=== PATIENT | female | born 1960 | race Caucasian/White ===

== ENCOUNTER 2017-06-12 18:20 | Emergency (ER) | payer OTHER ==
[~2017-06-12] VITALS: Ht 165.1 cm; Wt 99.3 kg
[2017-06-12 18:25] VITALS: BP_SYST 134
[2017-06-12] MEDS ORDERED: NITROGLYCERIN 1 INCH (GM) OINT. TP ONE (18:45)
[2017-06-12] MEDS ORDERED: ASPIRIN 81 MG TAB.CHEW PO ONE (18:45)
[2017-06-12 19:33] LABS: CALCIUM 9.6 mg/dL (8.4-11.0); CREATININE 0.89 mg/dL (0.55-1.30); POTASSIUM 4.4 mmol/L (3.5-5.1)
[2017-06-12 19:37] LABS: ALBUMIN 3.6 g/dL (3.4-4.8); TOTAL BILIRUBIN 0.2 mg/dL (0.0-1.0)
[2017-06-12 19:40] LABS: BASOPHILS # (AUTO) 0.1 K/uL (0.0-0.2); BASOPHILS % (AUTO) 0.6 % (0.0-2.0); EOSINOPHILS # (AUTO) 0.4 K/uL (0.0-0.4); EOSINOPHILS % (AUTO) 4.6 % (0.0-4.0); HEMATOCRIT 37.3 % (36-48); HEMOGLOBIN 12.5 g/dL (12.0-16.0); LYMPHOCYTES # (AUTO) 3.1 K/uL (1.0-5.5); LYMPHOCYTES % (AUTO) 36.3 % (20.5-51.5); MEAN CORPUSCULAR HEMOGLOBIN 28 pg (27-31); MEAN CORPUSCULAR HGB CONC 34 % (32-36); MEAN CORPUSCULAR VOLUME 84 fL (79.0-98.0); MONOCYTES # (AUTO) 0.5 K/uL (0.0-1.0); MONOCYTES % (AUTO) 5.6 % (1.7-9.3); NEUTROPHILS # (AUTO) 4.4 K/uL (1.8-7.7); NEUTROPHILS % (AUTO) 52.9 % (40.0-70.0); PLATELET COUNT (AUTO) 294 K/uL (130-430); RED BLOOD CELL COUNT(AUTO) 4.47 MIL/uL (4.2-6.2); WHITE BLOOD COUNT (AUTO) 8.5 K/uL (4.8-10.8)
[2017-06-12 19:41] LABS: PROTHROMBIN TIME 9.9 SECS (9.5-12.5)
[2017-06-12] MEDS ORDERED: DIPHENHYDRAMINE INJ 50 MG/ML VIAL IVP ONE (19:45)
[2017-06-12] MEDS ORDERED: MORPHINE 4 MG/ML INJ. SYRINGE IVP ONE (19:45)
[2017-06-12] MEDS ORDERED: MORPHINE SULFATE 10 MG/ML VIAL ONE (20:00)
[2017-06-12] MEDS ORDERED: KETOROLAC TROMETHAMINE 60 MG/2 ML VIAL IM ONE (22:00)
[2017-06-12 22:53] VITALS: BP_SYST 125
== END 2017-06-12 22:58 | disposition home or self-care (01) ==
LOC: SED 18:20
DX: R07.89 Other chest pain (principal); I10 Essential (primary) hypertension; E78.5 Hyperlipidemia, unspecified; Z88.2 Allergy status to sulfonamides; Z88.0 Allergy status to penicillin; Z90.710 Acquired absence of both cervix and uterus
CPT/HCPCS: 36415; 80053; 83880; 84484; 85025; 85610; 93005; 96372; 96374; 96375; 99285; J1200; J1885; J2270

== ENCOUNTER 2018-10-10 17:47 | Emergency (ER) | payer OTHER ==
[~2018-10-10] VITALS: Ht 165.1 cm; Wt 104.3 kg
[2018-10-10 18:10] VITALS: BP_SYST 151
[2018-10-10 18:40] LABS: BILIRUBIN,URINE NEGATIVE (NEGATIVE); CLARITY/URINE CLEAR (CLEAR); COLOR,URINE YELLOW (YELLOW); GLUCOSE,URINE NEGATIVE (NEGATIVE); KETONES,URINE NEGATIVE (NEGATIVE); LEUKOCYTE ESTERASE ,URINE NEGATIVE (NEGATIVE); NITRITE, URINE NEGATIVE (NEGATIVE); PH,URINE 5.5 (5.0-8.0); PROTEIN URINE NEGATIVE (NEGATIVE); UROBILINOGEN,URINE 0.2 (0.2-1.0)
[2018-10-10 18:42] LABS: BLOOD, URINE TRACE (NEGATIVE)
[2018-10-10 18:45] LABS: BACTERIA,URINE FEW /HPF (None Seen); RBC,URINE 0-3 /HPF (0-3); WBC,URINE 0-3 /HPF (0-3)
[2018-10-10] MEDS ORDERED: MORPHINE 2 MG/ML INJ. SYRINGE IM ONE (18:45)
[2018-10-10] MEDS ORDERED: ONDANSETRON 4 MG ODT TAB PO ONE (18:45)
[2018-10-10 18:46] LABS: MUCUS,URINE 2+ /LPF (None Seen)
[2018-10-10 19:11] LABS: BASOPHILS % (AUTO) 0.4 % (0.0-2.0); EOSINOPHILS # (AUTO) 0.1 K/uL (0.0-0.4); EOSINOPHILS % (AUTO) 1.5 % (0.0-4.0); HEMATOCRIT 38.9 % (36-48); HEMOGLOBIN 13.1 g/dL (12.0-16.0); LYMPHOCYTES # (AUTO) 3.7 K/uL (1.0-5.5); LYMPHOCYTES % (AUTO) 50.7 % (20.5-51.5); MEAN CORPUSCULAR HEMOGLOBIN 30 pg (27-31); MEAN CORPUSCULAR HGB CONC 34 % (32-36); MEAN CORPUSCULAR VOLUME 90 fL (79.0-98.0); MONOCYTES # (AUTO) 0.5 K/uL (0.0-1.0); MONOCYTES % (AUTO) 7.4 % (1.7-9.3); NEUTROPHILS # (AUTO) 2.9 K/uL (1.8-7.7); PLATELET COUNT (AUTO) 270 K/uL (130-430); RED BLOOD CELL COUNT(AUTO) 4.31 MIL/uL (4.2-6.2); RED CELL DISTRIBUTION WIDTH 13.9 % (9.0-15.0); WHITE BLOOD COUNT (AUTO) 7.3 K/uL (4.8-10.8)
[2018-10-10 19:18] LABS: CALCIUM 9.4 mg/dL (8.4-11.0); CREATININE 0.96 mg/dL (0.55-1.30); POTASSIUM 3.6 mmol/L (3.5-5.1)
[2018-10-10 19:22] LABS: PROTHROMBIN TIME 9.9 SECS (9.5-12.5)
[2018-10-10 19:23] LABS: ALBUMIN 3.4 g/dL (3.4-4.8); TOTAL BILIRUBIN 0.4 mg/dL (0.0-1.0)
[2018-10-10] MEDS ORDERED: MORPHINE 4 MG/ML INJ. SYRINGE ONE (19:30)
[2018-10-10 19:53] VITALS: BP_SYST 151
== END 2018-10-10 19:53 | disposition home or self-care (01) ==
LOC: SED 17:47
DX: R10.9 Unspecified abdominal pain (principal); M19.90 Unspecified osteoarthritis, unspecified site; M79.7 Fibromyalgia; E78.5 Hyperlipidemia, unspecified; I10 Essential (primary) hypertension; Z90.710 Acquired absence of both cervix and uterus; Z88.0 Allergy status to penicillin; Z88.2 Allergy status to sulfonamides
CPT/HCPCS: 36415; 74176; 80053; 81000; 83690; 85025; 85610; 85730; 96372; 99284; J2270; Q0162

== ENCOUNTER 2021-12-02 11:38 | Emergency (ER) | payer OTHER, MEDICAID ==
[~2021-12-02] VITALS: Ht 165.1 cm; Wt 57.2 kg
[2021-12-02 11:47] VITALS: BP_SYST 138
[2021-12-02] MEDS ORDERED: CLIN-142 PO (14:22)
[2021-12-02] MEDS ORDERED: IBUP-1969 PO (14:23)
[2021-12-02 14:39] VITALS: BP_SYST 138
== END 2021-12-02 14:40 | disposition home or self-care (01) ==
LOC: SED 11:38
DX: J34.0 Abscess, furuncle and carbuncle of nose (principal); I10 Essential (primary) hypertension; Z88.0 Allergy status to penicillin; Z88.2 Allergy status to sulfonamides; Z79.899 Other long term (current) drug therapy
CPT/HCPCS: 99283

== ENCOUNTER 2022-06-04 08:00 | Outpatient (CLI) | payer BC, MEDICAID ==
[~2022-06-04] VITALS: Ht 165.1 cm; Wt 96.6 kg
[~2022-06-04 08:00] MED LIST: CLIN-142 PO; IBUP-1969 PO
== END 2022-06-04 20:00 | disposition home or self-care (01) ==
LOC: SLB 08:00 → EDSTATUS 06-09 07:30
PROVIDERS: ATTEND Student in an Organized Health Care Education/Training Program
DX: Z01.812 Encounter for preprocedural laboratory examination (principal); M17.11 Unilateral primary osteoarthritis, right knee; Z20.822 Contact with and (suspected) exposure to COVID-19
CPT/HCPCS: 87081; 36415; U0003

== ENCOUNTER 2022-06-30 06:58 | Inpatient (IN) | payer BC, MEDICAID ==
[~2022-06-30] VITALS: Ht 165.1 cm; Wt 96.6 kg
[2022-06-30] MEDS ORDERED: LR 1,000 ML IV.SOLN IV ONE (10:00)
[2022-06-30] MEDS ORDERED: MORPHINE SULFATE 10MG/10ML PF AMP ONE (10:00)
[2022-06-30] MEDS ORDERED: METOCLOPRAMIDE HCL 10 MG/2 ML VIAL IVP PRN (10:00)
[2022-06-30] MEDS ORDERED: NS 1000 ML IV.SOLN IV ONE (10:00)
[2022-06-30] MEDS ORDERED: BUPIVACAINE /PF 0.25% 30 ML VIAL INJ ONE (10:00)
[2022-06-30] MEDS ORDERED: BISACODYL 10 MG/SUPPOSITORY RC PRN (10:00)
[2022-06-30] MEDS ORDERED: NS IRRIG SOLN 1000 ML IR ONE (10:00)
[2022-06-30] MEDS ORDERED: VANCOMYCIN HCL 1000 MG/VIAL IV ONE (10:00)
[2022-06-30] MEDS ORDERED: NALOXONE HCL 0.4 MG/ML AMP (NARCAN) IVP PRN ×4 (10:00→11:00)
[2022-06-30] MEDS ORDERED: ceFAZolin SODIUM 1 GM VIAL ONE (10:00)
[2022-06-30] MEDS ORDERED: BUPIVACAINE /EPINEPHRINE/PF 0.25% 30 ML VIAL ONE (10:00)
[2022-06-30] MEDS ORDERED: DIPHENHYDRAMINE HCL 25 MG CAPSULE PO PRN (10:00)
[2022-06-30] MEDS ORDERED: TRANEXAMIC ACID 1,000 MG/10 ML VIAL ONE (10:00)
[2022-06-30] MEDS ORDERED: BUPIVACAINE /PF 0.75% 10 ML VIAL INJ ONE (10:00)
[2022-06-30] MEDS ORDERED: LACTULOSE 20 GM/30 ML UDC PO PRN (10:00)
[2022-06-30] MEDS ORDERED: ONDANSETRON HCL 4 MG/2 ML VIAL ONE (10:00)
[2022-06-30] MEDS ORDERED: MIDAZOLAM HCL 2 MG/2 ML VIAL (VERSED) ONE (10:00)
[2022-06-30] MEDS ORDERED: KETOROLAC TROMETHAMINE 30 MG VIAL ONE (10:00)
[2022-06-30] MEDS ORDERED: ACETAMINOPHEN I.V. 1000 MG 0 ML IV ONE (10:46)
[2022-06-30] MEDS ORDERED: HYDROmorphone 1 MG/ML INJ. CARTRIDGE IVP PRN ×4 (11:00)
[2022-06-30] MEDS ORDERED: oxyCODONE HCL 5 MG TABLET PO PRN (11:00)
[2022-06-30] MEDS: LR 1,000 ML IV SCH (11:00)
[2022-06-30] MEDS ORDERED: MEPERIDINE HCL/PF 25 MG/ML DISP.SYRIN IVP PRN (11:00)
[2022-06-30] MEDS ORDERED: ONDANSETRON HCL 4 MG/2 ML VIAL IVP PRN ×3 (11:00→11:45)
[2022-06-30] MEDS ORDERED: LORATADINE 10 MG TABLET PO PRN (11:00)
[2022-06-30] MEDS ORDERED: MIDAZOLAM HCL 2 MG/2 ML VIAL (VERSED) IVP PRN (11:00)
[2022-06-30] MEDS ORDERED: DIPHENHYDRAMINE INJ 50 MG/ML VIAL IVP PRN (11:00)
[2022-06-30] MEDS ORDERED: traMADol HCL HCL 50 MG TABLET (ULTRAM) PO PRN (11:00)
[2022-06-30] MEDS ORDERED: VANCOMYCIN HCL 1 GM/NS PREMIX 250 ML IV ONE (11:15)
[2022-06-30] MEDS: ceFAZolin SODIUM 2 GM in D5W 50 ML IV SCH ×2 (11:15→18:03)
[2022-06-30] MEDS ORDERED: ACETAMINOPHEN I.V. 1000 MG 100 ML IV ONE (11:26)
[2022-06-30] MEDS ORDERED: OMEP-268 PO (12:03)
[2022-06-30] MEDS ORDERED: BENZ1TAB76 PO (12:03)
[2022-06-30] MEDS ORDERED: LIP80 PO (12:03)
[2022-06-30] MEDS ORDERED: [UNRECOGNIZED DRUG - CODE] PO (12:03)
[2022-06-30] MEDS ORDERED: PRAZ2CAP2 PO (12:03)
[2022-06-30] MEDS ORDERED: DIVA250T PO (12:03)
[2022-06-30] MEDS ORDERED: CYM30 PO (12:03)
[2022-06-30] MEDS ORDERED: LISI40TA13 PO (12:03)
[2022-06-30] MEDS ORDERED: RISP3TAB5 PO (12:03)
[2022-06-30] MEDS ORDERED: DULO60CA65 PO (12:03)
[2022-06-30 14:00] VITALS: BP_SYST 96
[2022-06-30 14:09] VITALS: BP_SYST 96
[2022-06-30] MEDS: ACETAMINOPHEN 500 MG TABLET PO SCH ×2 (14:45→21:15)
[2022-06-30] MEDS: KETOROLAC TROMETHAMINE 10 MG TABLET (TORADOL) PO SCH ×2 (15:36→21:25)
[2022-06-30 16:00] VITALS: BP_SYST 118
[2022-06-30] MEDS: HYDROmorphone 1 MG/ML INJ. CARTRIDGE IVP PRN (16:58)
[2022-06-30] MEDS ORDERED: PRAZOSIN HCL 1 MG CAPSULE PO SCH (21:00)
[2022-06-30] MEDS: risperiDONE 1 MG TABLET (RisperDAL) PO SCH (21:13)
[2022-06-30] MEDS: SENNOSIDES/DOCUSATE SODIUM 1 TAB TABLET(SENOKOT-S) PO SCH (21:20)
[2022-06-30] MEDS: BENZTROPINE MESYLATE 1 MG TABLET PO SCH (21:40)
[2022-06-30 23:50] VITALS: BP_SYST 119
[2022-06-30 23:53] VITALS: BP_SYST 119
[2022-07-01 00:18] VITALS: BP_SYST 108
[2022-07-01] MEDS: LR 1,000 ML IV SCH ×3 (03:13→16:05)
[2022-07-01] MEDS: ceFAZolin SODIUM 2 GM in D5W 50 ML IV SCH (03:26)
[2022-07-01] MEDS: KETOROLAC TROMETHAMINE 10 MG TABLET (TORADOL) PO SCH (05:25)
[2022-07-01] MEDS: ACETAMINOPHEN 500 MG TABLET PO SCH ×2 (06:13→13:49)
[2022-07-01 07:04] LABS: HEMATOCRIT 34.2 % (36-48); LYMPHOCYTES # (AUTO) 1.4 K/uL (1.0-5.5); LYMPHOCYTES % (AUTO) 10.5 % (20.5-51.5); MEAN CORPUSCULAR HEMOGLOBIN 31 pg (27-31); MEAN CORPUSCULAR HGB CONC 35 % (32-36); MEAN CORPUSCULAR VOLUME 87 fL (79.0-98.0); MONOCYTES # (AUTO) 0.5 K/uL (0.0-1.0); MONOCYTES % (AUTO) 3.7 % (1.7-9.3); NEUTROPHILS # (AUTO) 11.5 K/uL (1.8-7.7); NEUTROPHILS % (AUTO) 85.8 % (40.0-70.0); PLATELET COUNT (AUTO) 241 K/uL (130-430); RED BLOOD CELL COUNT(AUTO) 3.93 MIL/uL (4.2-6.2); RED CELL DISTRIBUTION WIDTH 13.5 % (9.0-15.0); WHITE BLOOD COUNT (AUTO) 13.4 K/uL (4.8-10.8)
[2022-07-01 07:35] VITALS: BP_SYST 103
[2022-07-01 07:46] LABS: ALBUMIN 2.8 g/dL (3.4-4.8); CALCIUM 9.4 mg/dL (8.4-11.0); CREATININE 1.1 mg/dL (0.55-1.30); TOTAL BILIRUBIN 0.3 mg/dL (0.0-1.0)
[2022-07-01] MEDS ORDERED: SENN-22 PO (08:04)
[2022-07-01] MEDS ORDERED: CEFA250S32 PO (08:04)
[2022-07-01] MEDS ORDERED: ACET-2634 PO (08:04)
[2022-07-01] MEDS ORDERED: DEC4 PO (08:04)
[2022-07-01] MEDS: SENNOSIDES/DOCUSATE SODIUM 1 TAB TABLET(SENOKOT-S) PO SCH (08:20)
[2022-07-01] MEDS: risperiDONE 1 MG TABLET (RisperDAL) PO SCH (08:22)
[2022-07-01] MEDS: BENZTROPINE MESYLATE 1 MG TABLET PO SCH (08:23)
[2022-07-01] MEDS: oxyCODONE HCL 5 MG TABLET PO PRN ×2 (08:38→17:52)
[2022-07-01] MEDS ORDERED: DULoxetine HCL 30 MG CAPSULE.DR (CYMBALTA) PO SCH ×2 (09:00)
[2022-07-01] MEDS ORDERED: lisinopriL 20 MG TABLET PO SCH (09:00)
[2022-07-01] MEDS ORDERED: ATORVASTATIN 20 MG TABLET PO SCH (09:00)
[2022-07-01] MEDS ORDERED: DIVALPROEX SODIUM 250 MG TAB.SR.24H (DEPAKOTE ER) PO SCH (09:00)
[2022-07-01] MEDS ORDERED: ASPIRIN 81 MG TAB.CHEW PO SCH (09:00)
[2022-07-01] MEDS ORDERED: DECADRON 4 MG TABLET PO SCH (09:00)
[2022-07-01] MEDS ORDERED: LEVOTHYROXINE SODIUM 0.15 MG TABLET PO SCH (09:00)
[2022-07-01] MEDS ORDERED: CELECOXIB 200 MG CAPSULE PO SCH (11:00)
[2022-07-01] MEDS: HYDROmorphone 1 MG/ML INJ. CARTRIDGE IVP PRN (11:35)
[2022-07-01 11:41] VITALS: BP_SYST 145
[2022-07-01 14:23] VITALS: BP_SYST 145
[2022-07-01 16:01] VITALS: BP_SYST 130
== END 2022-07-01 22:21 | disposition home health service (06) | DRG 470 ==
LOC: SMU 06:58
PROVIDERS: ADMIT Student in an Organized Health Care Education/Training Program; ATTEND Student in an Organized Health Care Education/Training Program
PROC: 0SRC0J9 Replacement of Right Knee Joint with Synthetic Substitute, Cemented, Open Approach (ICD-10-PCS; principal; 2022-06-30 10:12)
DX: M17.11 Unilateral primary osteoarthritis, right knee (principal); Z20.822 Contact with and (suspected) exposure to COVID-19; Z88.0 Allergy status to penicillin; Z88.2 Allergy status to sulfonamides
CPT/HCPCS: 36415; 73560-TC; 80053; 85025; 87081; 88305; 88311; 96379; 97110-GP; 97116-GP; 97530-GP; C1713; C1776; J0131; J0690; J1170; J1885; J2274; J2405; J3370; J3465; J3490; J7030; J7060; J7120; J8540; Q0163; U0003